=== PATIENT | female | born 1990 | race African-American/Black ===

== ENCOUNTER 2016-09-06 11:58 | Emergency (ER) | payer MEDICAID ==
[2016-09-06 12:03] VITALS: BP 95/83
--- NOTE | 2016-09-06 12:50 | ER Document Report ---
ED GI/ - General Chief Complaint: Abdominal Pain Stated Complaint: STOMACH PAIN Time seen by provider: 12:50 Mode of Arrival: Ambulatory Information source: Patient Notes: 25 yo c/o pelvic cramping since she was seen in [facility] on August 08 for and bleeding (std negative). She does not know if she is Rh- or not she does not remember getting any RhoGAM. She was not seen in this emergency department. They told her she was 9 weeks at the time. She comes into the emergency room today because of persistent pelvic cramping. No vaginal discharge or odor. No fever or chills. No dysuria frequency or urgency. She's in the room eating fried chicken and kazakh fries. Patient wants a note today that there is a heart beat and that everything is okay. She has been told multiple things and wants to be clearly understanding how far along she is. TRAVEL OUTSIDE OF THE [place] IN LAST 30 DAYS: No - Related Data Allergies/Adverse Reactions: diphenhydramine [From Benadryl] Allergy (Verified 09/06/16 12:00) Penicillins Allergy (Verified 09/06/16 12:00) Past Medical History - General Information source: Patient - Social History Smoking Status: Never Smoker Frequency of alcohol use: None Drug Abuse: None Lives with: Spouse/Significant other Family History: Reviewed & Not Pertinent Patient has suicidal ideation: No Patient has homicidal ideation: No - Medical History Medical History: Negative Renal/ Medical History: Denies: Hx Peritoneal Dialysis Surgical Hx: Negative Review of Systems - Review of Systems Constitutional: No symptoms reported EENT: No symptoms reported Cardiovascular: No symptoms reported Respiratory: No symptoms reported Gastrointestinal: No symptoms reported Genitourinary: No symptoms reported Female Genitourinary: See HPI Musculoskeletal: No symptoms reported Skin: No symptoms reported Hematologic/Lymphatic: No symptoms reported Neurological/Psychological: No symptoms reported Physical Exam - Vital signs Vitals: Temp Pulse Resp BP Pulse Ox 98.9 F 79 16 95/83 L 100 09/06/16 12:00 09/06/16 12:00 09/06/16 12:00 09/06/16 12:00 09/06/16 12:00 Interpretation: Normal - General General appearance: Appears well, Alert - HEENT Head: Normocephalic, Atraumatic Eyes: Normal Conjunctiva: Normal Pupils: PERRL Mucous membranes: Normal Neck: Supple. No: Lymphadenopathy - Respiratory Respiratory status: No respiratory distress Chest status: Nontender Breath sounds: Normal Chest palpation: Normal - Cardiovascular Rhythm: Regular Heart sounds: Normal auscultation Murmur: No - Abdominal Inspection: Normal Distension: No distension Bowel sounds: Normal Tenderness: Nontender. No: Tender Organomegaly: Other - fundus that symphysis pubis - Back Back: Normal, Nontender. No: CVA tenderness - Extremities General upper extremity: Normal inspection, Nontender, Normal color, Normal ROM , Normal temperature General lower extremity: Normal inspection, Nontender, Normal color, Normal ROM , Normal temperature, Normal weight bearing. No: Ziare's sign - Neurological Neuro grossly intact: Yes Cognition: Normal Orientation: AAOx4 [place] Coma Scale Eye Opening: Spontaneous [place] Coma Scale Verbal: Oriented [place] Coma Scale Motor: Obeys Commands [place] Coma Scale Total: 15 Speech: Normal Motor strength normal: LUE, RUE, LLE, RLE Sensory: Normal - Psychological Associated symptoms: Normal affect, Normal mood - Skin Skin Temperature: Warm Skin Moisture: Dry Skin Color: Normal Skin irregularity: negative: Rash Course - Re-evaluation Re-evalutation: 09/06/16 13:30 Urinalysis is negative. Consult Dr. Rebollar for the OB ultrasound. 09/06/16 13:37 fht 151 09/06/16 15:39 Viable 12 week 6 day IUP. Blood type is B+. Quantitative is 231,020. No urinary tract infection. Hemoglobin is 10.4 and her normal is 10.7. - Vital Signs Vital signs: Temp Pulse Resp BP Pulse Ox 98.9 F 79 16 95/83 L 100 09/06/16 13:24 09/06/16 13:24 09/06/16 13:24 09/06/16 13:24 09/06/16 13:24 - Laboratory Result Diagrams: 09/06/16 13:05 09/06/16 13:05 Laboratory results interpreted by me: 09/06/16 09/06/16 09/06/16 13:05 13:05 13:05 Hgb 10.4 L Hct 30.5 L MCV 74 L MCH 25.1 L RDW 18.6 H Alkaline Phosphatase 34 L Beta HCG, Quant 301520.00 H Discharge - Discharge Clinical Impression: viable 12 week 6 day , mild pelvic cramping, anemia Condition: Good Disposition: HOME, SELF-CARE Instructions: ([facility]), Pelvic Pain in and Round Ligament Pain ([facility]), [facility] [place], [facility] ([facility]) Additional Instructions: [facility] for your OB care Daily multivitamin Drink 2 L of water per day Return to the emergency room any increased pain or vaginal bleeding Please complete the patient satisfaction survey if you get one, and return it.. If you do not receive a survey, then you can go to the [facility] website, [email or web address] and place your comments about your very good care. Thank you very much. It was a pleasure being your medical provider today. Forms: Return to Work
[2016-09-06 13:24] LABS: ABSOLUTE EOSINOPHILS # (AUTO) 0.1 10^3/uL (0.0-0.6); ABSOLUTE LYMPHOCYTES (AUTO) 1.8 10^3/uL (0.5-4.7); ABSOLUTE MONOCYTES (AUTO) 0.7 10^3/uL (0.1-1.4); ABSOLUTE NEUT (AUTO) 4.2 10^3/uL (1.7-8.2); BASOPHILS % (AUTO) 0.5 % (0-2); EOSINOPHILS % (AUTO) 1.4 % (0-6); HEMATOCRIT 30.5 % (36.0-47.0); HEMOGLOBIN 10.4 g/dL (12.0-15.5); HGB HCT DIFFERENCE 0.7; LYMPHOCYTES % (AUTO) 25.8 % (13-45); MEAN CORPUSCULAR HEMOGLOBIN 25.1 pg (27.0-33.4); MEAN CORPUSCULAR VOLUME 74 fl (80-97); MONOCYTES % (AUTO) 10.6 % (3-13); RED BLOOD COUNT 4.13 10^6/uL (3.72-5.28); RED CELL DISTRIBUTION WIDTH 18.6 % (11.5-14.0); SEGMENTED NEUTROPHILS % (AUTO) 61.7 % (42-78); WHITE BLOOD COUNT 6.9 10^3/uL (4.0-10.5)
[2016-09-06 13:28] LABS: APPEARANCE,URINE SLIGHTLY-CLOUDY; BILIRUBIN,URINE NEGATIVE (NEGATIVE); GLUCOSE, URINE NEGATIVE (NEGATIVE); KETONES,URINE NEGATIVE (NEGATIVE); LEUKOCYTE ESTERASE,URINE NEGATIVE (NEGATIVE); NITRITE,URINE NEGATIVE (NEGATIVE); PROTEIN,URINE NEGATIVE (NEGATIVE); UROBILINOGEN,URINE NEGATIVE mg/dL (<2.0)
[2016-09-06 13:45] LABS: ALANINE AMINOTRANSFERASE 27 U/L (9-52); ALBUMIN 4.5 g/dL (3.5-5.0); ALKALINE PHOSPHATASE 34 U/L (38-126); ANION GAP 10 (5-19); ASPARTATE AMINO TRANSFERASE 25 U/L (14-36); BILIRUBIN,DIRECT 0.2 mg/dL (0.0-0.4); BILIRUBIN,TOTAL 0.6 mg/dL (0.2-1.3); BLOOD UREA NITROGEN 9 mg/dL (7-20); CALCIUM 9.6 mg/dL (8.4-10.2); CARBON DIOXIDE 24 mmol/L (22-30); CHLORIDE 105 mmol/L (98-107); CREATININE RESULT 0.56 mg/dL (0.52-1.25); GLUCOSE 87 mg/dL (75-110); POTASSIUM 4.5 mmol/L (3.6-5.0); SODIUM 139.2 mmol/L (137-145); TOTAL PROTEIN 7.9 g/dL (6.3-8.2)
[2016-09-06 13:56] LABS: ANISOCYTOSIS 2+; HYPOCHROMASIA 1+; MICROCYTOSIS 1+; POIKILOCYTOSIS 4+
[2016-09-06 13:57] LABS: OVALOCYTES 4+; SCHISTOCYTES SLIGHT
[2016-09-11 19:53] LABS: PATH REVIEW PATHOLOGIST REVIEWED
== END 2016-09-06 16:47 | disposition home or self-care (01) ==
LOC: ER 11:58
DX: R10.2 Pelvic and perineal pain (principal); D64.9 Anemia, unspecified; R10.9 Unspecified abdominal pain; Z3A.12 12 weeks gestation of pregnancy
CPT/HCPCS: 36415; 76801; 80053; 81001; 84702; 85025; 86900; 86901; 87086; 99284

== ENCOUNTER 2016-09-12 23:11 | Emergency (ER) | payer MEDICAID ==
--- NOTE | 2016-09-13 01:23 | ER Document Report ---
ED General - General Chief Complaint: OB Problem (<20wks) Stated Complaint: ABDOMINAL PAIN,VAGINAL BLEEDING Notes: Patient is a 25-year-old female at 12 weeks by ultrasound who presents with vaginal bleeding. States presently one or 2 prior to arrival she began to develop vaginal bleeding consistent with a typical menstrual period. She has bled through 1 pad in the past one hour. She notes an associated mild, dull, cramping abdominal pain to the suprapubic region. No history of similar symptoms during this . She has not seen her CORPORATE RECEPTIONIST regarding today's concerns. She denies any vomiting, diarrhea or fever. No vaginal discharge. TRAVEL OUTSIDE OF THE [place] IN LAST 30 DAYS: No - Related Data Allergies/Adverse Reactions: diphenhydramine [From Benadryl] Allergy (Verified 09/12/16 23:29) Penicillins Allergy (Verified 09/12/16 23:29) Past Medical History - General Information source: Patient - Social History Smoking Status: Never Smoker Frequency of alcohol use: None Drug Abuse: None Lives with: Spouse/Significant other Family History: Reviewed & Not Pertinent Renal/ Medical History: Denies: Hx Peritoneal Dialysis Surgical Hx: Negative - Immunizations Hx Diphtheria, Pertussis, Tetanus Vaccination: Yes Review of Systems - Review of Systems Notes: Constitutional: Negative for fever. HENT: Negative for sore throat. Eyes: Negative for visual changes. Cardiovascular: Negative for chest pain. Respiratory: Negative for shortness of breath. Gastrointestinal: Positive for lower abdominal cramping Genitourinary: Positive for vaginal bleeding Musculoskeletal: Negative for back pain. Skin: Negative for rash. Neurological: Negative for headaches, weakness or numbness. 10 point ROS negative except as marked above and in HPI. Physical Exam - Vital signs Vitals: Temp Pulse Resp BP Pulse Ox 98.6 F 84 20 108/61 100 09/12/16 23:32 09/12/16 23:32 09/12/16 23:32 09/12/16 23:32 09/12/16 23:32 Interpretation: Normal Notes: PHYSICAL EXAMINATION: GENERAL: Well-appearing, well-nourished and in no acute distress. HEAD: Atraumatic, normocephalic. EYES: Pupils equal round and reactive to light, extraocular movements intact, sclera anicteric, conjunctiva are normal. ENT: nares patent, oropharynx clear without exudates. Moist mucous membranes. NECK: Normal range of motion, supple without lymphadenopathy LUNGS: Breath sounds clear to auscultation bilaterally and equal. No wheezes rales or rhonchi. HEART: Regular rate and rhythm without murmurs ABDOMEN: Soft, nontender, normoactive bowel sounds. No guarding, no rebound. No masses appreciated. EXTREMITIES: Normal range of motion, no pitting or edema. No cyanosis. NEUROLOGICAL: No focal neurological deficits. Moves all extremities spontaneously and on command. PSYCH: Normal mood, normal affect. SKIN: Warm, Dry, normal turgor, no rashes or lesions noted. Course - Re-evaluation Re-evalutation: 09/13/16 01:21 Patient presents with a mild amount of vaginal bleeding in the setting of an early first trimester . Bedside ultrasound easily able to visualize an intrauterine , heart rate of 145. Active movement. No active bleeding at time of presentation. She is Rh positive. Patient's abdominal exam is otherwise benign without any focal tenderness. I do not suspect an acute appendicitis, pyelonephritis, cystitis, or bowel obstruction. At this time will discharge with return precautions and follow-up recommendations. Verbal discharge instructions given a the bedside and opportunity for questions given. Medication warnings reviewed. Patient is in agreement with this plan and has verbalized understanding of return precautions and the need for primary care follow-up in the next 24-72 hours. - Vital Signs Vital signs: Temp Pulse Resp BP Pulse Ox 97.9 F 78 16 102/56 L 98 09/13/16 01:37 09/13/16 01:37 09/13/16 01:37 09/13/16 01:37 09/13/16 01:37 Discharge - Discharge Clinical Impression: Vaginal bleeding in Qualifiers: Trimester: first trimester Qualified Code(s): O46.91 - Antepartum hemorrhage, unspecified, first trimester Condition: Good Disposition: HOME, SELF-CARE Additional Instructions: Your ultrasound today shows a living intrauterine . You do have a small subchorionic hemorrhage. Many pregnancies with this complication can go on to become normal pregnancies. Please follow closely with your primary care CORPORATE RECEPTIONIST. Please return if you develop severe abdominal pain, bleeding that goes through more than 2 pads for more than 2 hours, pass out, or have any other symptoms that are concerning to you. Please follow-up closely with your OBGYN regarding todays visit.
[2016-09-13 01:41] VITALS: BP 102/56
== END 2016-09-13 01:42 | disposition home or self-care (01) ==
LOC: ER 23:11
DX: O20.9 Hemorrhage in early pregnancy, unspecified (principal); O26.891 Other specified pregnancy related conditions, first trimester; R10.30 Lower abdominal pain, unspecified; Z3A.12 12 weeks gestation of pregnancy; Z88.0 Allergy status to penicillin; Z88.8 Allergy status to other drugs, medicaments and biological substances
CPT/HCPCS: 99283

== ENCOUNTER 2017-03-01 12:20 | Outpatient (CLI) | payer MEDICAID ==
[2017-03-01 13:03] LABS: APPEARANCE,URINE CLEAR; BILIRUBIN,URINE NEGATIVE (NEGATIVE); GLUCOSE, URINE NEGATIVE (NEGATIVE); KETONES,URINE NEGATIVE (NEGATIVE); LEUKOCYTE ESTERASE,URINE NEGATIVE (NEGATIVE); NITRITE,URINE NEGATIVE (NEGATIVE); PROTEIN,URINE NEGATIVE (NEGATIVE); URINE SPECIFIC GRAVITY 1.005; UROBILINOGEN,URINE NEGATIVE mg/dL (<2.0)
[2017-03-01 13:19] LABS: URINE BARBITURATES SCREEN NEGATIVE; URINE METHADONE SCREEN NEGATIVE; URINE OPIATES LOW NEGATIVE; URINE PHENCYCLIDINE SCREEN NEGATIVE
--- NOTE | 2017-03-01 14:46 | Non Stress Test Report ---
Non Stress Test Datetime Report Generated by CPN: 03/01/2017 14:45 DEMOGRAPHIC EGA NST: 38.0 INDICATION Indication for Study (NST) Other: LC MONITORING Monitor Explained: Monitor Explained; Test Explained; Patient Verbalized Understanding Time on Monitor: 03/01/2017 12:44 Time off Monitor: 03/01/2017 14:40 NST Duration: 116 NST INTERVENTIONS NST Interventions: None Physician Notified NST: K Ya CNM BABY A: [id number] BABY A Movement : Present Contraction Frequency : irregular FHR Baseline : 155 Accelerations : 15X15 Decelerations : None Variability : Moderate 6-25bpm NST Review: Meets Criteria for Reactive NST NST Review and Verified By : D Bellavance RNC NST Results: Reactive NST REPORT Report Trigger: Send Report
== END 2017-03-01 14:50 | disposition home or self-care (01) ==
LOC: LC 12:20
PROVIDERS: ATTEND Obstetrics & Gynecology
DX: O47.1 False labor at or after 37 completed weeks of gestation (principal); Z3A.38 38 weeks gestation of pregnancy
CPT/HCPCS: 59025; 80307; 81005

== ENCOUNTER 2017-03-04 14:33 | Outpatient (CLI) | payer MEDICAID ==
[2017-03-04 15:13] LABS: APPEARANCE,URINE SLIGHTLY-CLOUDY; BILIRUBIN,URINE NEGATIVE (NEGATIVE); GLUCOSE, URINE NEGATIVE (NEGATIVE); KETONES,URINE NEGATIVE (NEGATIVE); LEUKOCYTE ESTERASE,URINE MODERATE (NEGATIVE); NITRITE,URINE NEGATIVE (NEGATIVE); PROTEIN,URINE NEGATIVE (NEGATIVE); URINE SPECIFIC GRAVITY 1.013; UROBILINOGEN,URINE NEGATIVE mg/dL (<2.0)
--- NOTE | 2017-03-04 15:23 | Non Stress Test Report ---
Non Stress Test Datetime Report Generated by CPN: 03/04/2017 15:23 DEMOGRAPHIC Test Number: 2 EGA NST: 38.3 INDICATION Indication for Study: Ordered by Provider MONITORING Monitor Explained: Monitor Explained; Test Explained; Patient Verbalized Understanding Time on Monitor: 03/04/2017 14:50 Time off Monitor: 03/04/2017 15:21 NST Duration: 31 NST INTERVENTIONS NST Interventions: None Physician Notified NST: Dr. Enrique BABY A: [id number] BABY A Movement : Present Contraction Frequency : Irreg FHR Baseline : 145 Accelerations : 15X15 Decelerations : None Variability : Moderate 6-25bpm NST Review: Meets Criteria for Reactive NST NST Review and Verified By : SAUL Fleming Results: Reactive NST REPORT Report Trigger: Send Report
[2017-03-04 15:35] LABS: URINE BARBITURATES SCREEN NEGATIVE; URINE METHADONE SCREEN NEGATIVE; URINE OPIATES LOW NEGATIVE; URINE PHENCYCLIDINE SCREEN NEGATIVE
== END 2017-03-04 17:01 | disposition home or self-care (01) ==
LOC: LC 14:33
PROVIDERS: ATTEND Obstetrics & Gynecology
DX: O47.9 False labor, unspecified (principal)
CPT/HCPCS: 59025; 80307; 81005

== ENCOUNTER 2017-03-12 02:36 | Inpatient (IN) | payer MEDICAID ==
[2017-03-12 03:01] LABS: APPEARANCE,URINE CLEAR; BILIRUBIN,URINE NEGATIVE (NEGATIVE); GLUCOSE, URINE NEGATIVE (NEGATIVE); KETONES,URINE NEGATIVE (NEGATIVE); LEUKOCYTE ESTERASE,URINE NEGATIVE (NEGATIVE); NITRITE,URINE NEGATIVE (NEGATIVE); PROTEIN,URINE NEGATIVE (NEGATIVE); URINE SPECIFIC GRAVITY 1.004; UROBILINOGEN,URINE NEGATIVE mg/dL (<2.0)
[2017-03-12] MEDS ORDERED: RINGERS SOLUTION,LACTATED 1,000 ML IV PRN (03:03)
[2017-03-12] MEDS ORDERED: MISOPROSTOL 0.2 MG TABLET ONE (03:06)
[2017-03-12] MEDS ORDERED: VANCOMYCIN HCL INJ 1000 MG VIAL ONE (03:06)
[2017-03-12] MEDS ORDERED: OXYTOCIN/NORMAL SALINE 20 UNIT/1,000 ML RTUINJ ONE (03:06)
[2017-03-12] MEDS ORDERED: LIDOCAINE 1% INJ-PF (10 MG/ML) 30 ML SDV ONE (03:06)
[2017-03-12] MEDS ORDERED: VANCOMYCIN HCL 1,000 MG in DEXTROSE 5%-WATER 250 ML IV SCH (03:15)
[2017-03-12 03:18] LABS: URINE BARBITURATES SCREEN NEGATIVE; URINE METHADONE SCREEN NEGATIVE; URINE OPIATES LOW NEGATIVE; URINE PHENCYCLIDINE SCREEN NEGATIVE
[2017-03-12 03:49] LABS: ABSOLUTE EOSINOPHILS # (AUTO) 0.1 10^3/uL (0.0-0.6); ABSOLUTE LYMPHOCYTES (AUTO) 3.6 10^3/uL (0.5-4.7); ABSOLUTE MONOCYTES (AUTO) 1.5 10^3/uL (0.1-1.4); ABSOLUTE NEUT (AUTO) 6.7 10^3/uL (1.7-8.2); BASOPHILS % (AUTO) 0.2 % (0-2); EOSINOPHILS % (AUTO) 0.9 % (0-6); HEMATOCRIT 27.3 % (36.0-47.0); HEMOGLOBIN 8.9 g/dL (12.0-15.5); HGB HCT DIFFERENCE -0.6; LYMPHOCYTES % (AUTO) 30.3 % (13-45); MEAN CORPUSCULAR HEMOGLOBIN 24.5 pg (27.0-33.4); MEAN CORPUSCULAR HGB CONC 32.7 g/dL (32.0-36.0); MEAN CORPUSCULAR VOLUME 75 fl (80-97); MONOCYTES % (AUTO) 12.5 % (3-13); RED BLOOD COUNT 3.66 10^6/uL (3.72-5.28); RED CELL DISTRIBUTION WIDTH 18.2 % (11.5-14.0); SEGMENTED NEUTROPHILS % (AUTO) 56.1 % (42-78)
[2017-03-12] MEDS ORDERED: CETIRIZINE 10 MG TABLET PO ONE (04:34)
[2017-03-12] MEDS ORDERED: CETIRIZINE HCL ORAL SOLN 5 MG/5 ML UDCUP ONE (04:45)
[2017-03-12] MEDS ORDERED: OXYTOCIN/NORMAL SALINE 20 UNIT/1,000 ML RTUINJ IV PRN ×2 (05:43→11:34)
--- NOTE | 2017-03-12 09:53 | L&D Progress Notes ---
PROGRESS NOTES Datetime Report Generated by CPN: 03/12/2017 09:53 PROGRESS NOTE Impression: Reassuring Heart Rate Plan: Continue Present Management; Induction Vital Signs : Reviewed; Within Normal Limits Comment: sleeping through uc's, Cat 1 strip VAGINAL EXAM Dilatation: 6 Effacement: 90 Station: -2 MEMBRANES Pooling: Negative Membranes: Intact FETUS A Monitoring: External US : 39.4 Estimated Weight (gm): 3500 Presentation: Vertex SIGNATURE SIGNATURE: [id number] SIGNATURE: [id number] SIGNATURE: [id number] Assignment: Hari Short MD Signature: with User ID: [email or web address] : with User ID: [email or web address]
[2017-03-12] MEDS ORDERED: IBUPROFEN 800 MG TABLET ONE (11:33)
[2017-03-12] MEDS ORDERED: DIPHENHYDRAMINE HCL 25 MG CAPSULE PO PRN (11:34)
[2017-03-12] MEDS ORDERED: MISOPROSTOL 0.2 MG TABLET PR PRN (11:34)
[2017-03-12] MEDS ORDERED: PROMETHAZINE HCL 25 MG SUPP.RECT PR PRN (11:34)
[2017-03-12] MEDS ORDERED: ACETAMINOPHEN WITH CODEINE #3 TABLET PO PRN (11:34)
[2017-03-12] MEDS ORDERED: MAGNESIUM HYDROXIDE SUSP 30 ML UDCUP PO PRN ×2 (11:34→15:00)
[2017-03-12] MEDS ORDERED: MEASLES,MUMPS&RUBELLA VACC/PF 0.5 ML VIAL SUBCUT PRN ×2 (11:34→15:00)
[2017-03-12] MEDS ORDERED: DIPH/PERTUSS(ACELL)/TETANUS VAC/PF 0.5 ML SYR (>=10YO) IM PRN ×2 (11:34→15:00)
[2017-03-12] MEDS ORDERED: ACETAMINOPHEN 650 MG SUPP.RECT PR PRN (11:34)
[2017-03-12] MEDS ORDERED: PSEUDOEPHEDRINE HCL 30 MG TABLET PO PRN (11:34)
[2017-03-12] MEDS ORDERED: BENZOCAINE/MENTHOL AEROSOL SPRAY 56 ML TOP PRN (11:34)
[2017-03-12] MEDS ORDERED: DIBUCAINE 1% OINTMENT 28 GM TP PRN (11:34)
[2017-03-12] MEDS ORDERED: PROMETHAZINE HCL INJ 25 MG/1 ML VIAL IV PRN ×2 (11:34→15:00)
[2017-03-12] MEDS ORDERED: GLYCERIN/WITCH HAZEL LEAF 1 EACH MED..PAD TP PRN (11:34)
[2017-03-12] MEDS ORDERED: NA PHOS,M-B/NA PHOS,DI-BA (ADULT) 133 ML ENEMA PR PRN (11:34)
[2017-03-12] MEDS ORDERED: PROMETHAZINE HCL 25 MG TABLET PO PRN (11:34)
--- NOTE | 2017-03-12 12:14 | Delivery Summary ---
Del Sum A-C Datetime Report Generated by CPN: 03/12/2017 12:14 DELIVERY PERSONNEL DELIVERY PERSONNEL: [id number] Delivery Doctor:: Kim Galindo CNM Labor and Delivery Nurse:: Rosio Gibson RNservice now developer Nurse:: Gretchen Palacio RN Logistics Team Leader/PAYROLL BOOKKEEPER: Vishnu Walter, SIGN MAKER MATERNAL INFORMATION Delivery Anesthesia: None Medications After Delivery: Pitocin Bolus-Please Comment; Pitocin Drip 20 Units/1000ml NSS; Cytotec 600mcg Per Rectum/Vagina Estimated Blood Loss (ml): 200 Maternal Complications: None Provider Comments: pt progressed quickly, viable female from OA to PETAR with compound hand presentation, placed on mothers abd, cord double clamped and cut after 2 min, cord cut by FOB, spont delivery of grossly nl intact placenta, 3 vc, ebl 200cc, Pitocin, massage and cytotec 600 mcg via rectum superficial periurethral lac did not need repair Baby and mom remains in recovery in stable condition LABOR SUMMARY EDC: 03/15/2017 00:00 No. Babies in Womb: 1 Attempted: No Labor Anesthesia: None LABOR INFORMATION Reason for Induction: Not Applicable Onset of Labor: 03/12/2017 05:30 Complete Dilatation: 03/12/2017 11:14 Oxytocin: Augmentation Group B Beta Strep: positive Antibiotics # of Doses: 1 Antibiotics Time of Last Dose: 329 Name of Antibiotic Given: Vancomycin Steroids Given: None Reason Steroids Not Administered: Not Applicable MEMBRANES Membranes Rupture Method: Artificial Rupture of Membranes: 03/12/2017 10:57 Length of Rupture (hr): 0.38 Amniotic Fluid Color: Clear Amniotic Fluid Amount: Small Amniotic Fluid Odor: Normal STAGES OF LABOR Stage 1 hr: 5 Stage 1 min: 44 Stage 2 hr: 0 Stage 2 min: 6 Stage 3 hr: 0 Stage 3 min: 4 Total Time in Labor hr: 5 Total Time in Labor min: 54 VAGINAL DELIVERY Episiotomy: None Laceration #1: None Laceration Extension #1: N/A Other Laceration: PERIURETHRAL SUPERFICIAL LAC Laceration Repair: No Sponge Count Correct: N/A Sharps Count Correct: N/A CSECTION DELIVERY Primary Indication: N/A Secondary Indication: N/A CSection Incidence: N/A Labor: N/A Elective: N/A CSection Incision: N/A BABY A INFORMATION Delivery Date/Time: 03/12/2017 11:20 Method of Delivery: Vaginal Born in Route : No : N/A Forceps: N/A Vacuum Extraction: N/A Shoulder Dystocia : No PRESENTATION/POSITION BABY A Presentation: Cephalic Cephalic Presentation: Vertex Vertex Position: Left Occipital Anterior Breech Presentation: N/A PLACENTA INFORMATION BABY A Placenta Delivery Time : 03/12/2017 11:24 Placenta Method of Delivery: Spontaneous Placenta Status: Delivered SCORES BABY A Heart Rate 1 min: >100 bpm Resp Effort 1 min: Good Cry Reflex Irritability 1 min: Cough or Sneeze or Pulls Away Muscle Tone 1 min: Active Motion Color 1 min: Blue/Pale Resuscitation Effort 1 min: Tactile Stimulation SCORE 1 MIN: 8 Heart Rate 5 min: >100 bpm Resp Effort 5 min: Good Cry Reflex Irritability 5 min: Cough or Sneeze or Pulls Away Muscle Tone 5 min: Active Motion Color 5 min: Body [place], Extremities Blue Resuscitation Effort 5 min: Tactile Stimulation SCORE 5 MIN: 9 INFORMATION BABY A Gestational Age at Delivery: 39.4 Gestational Status: Full Term- 39- 40.6 Weeks Infant Outcome : Liveborn Infant Condition : Stable Sex: Female IDENTIFICATION BABY A Verification Date/Time: 03/12/2017 11:46 ID Band Number: [id number] Mother's Name Verified: Yes Infant RN Verifying : AZaira Gibson RN C. Tania RN WEIGHT/LENGTH BABY A Infant Birthweight (gm): 2790 Weight (lb): 6 Infant Weight (oz): 2 Infant Length (in): 19.25 Length (cm): 48.90 CORD INFORMATION BABY A No. Cord Vessels: 3 Nuchal Cord : N/A Cord Blood Taken: Yes-For Storage (Mom's Blood type +) Infant Suction: Mouth ASSESSMENT BABY A Complications: None Physical Findings at Delivery: Within Normal Limits Infant Respirations: Appears Normal Skin to Skin: Yes Poiser/ALS Called : No Infant Care By: A MAKENZIE, RN Transferred To: Remains with Mother BABY B INFORMATION : N/A
--- NOTE | 2017-03-12 14:19 | Admission Physical ---
Datetime Report Generated by CPN: 03/12/2017 14:19 CURRENT ADMISSION Chief Complaint: Uterine Contractions Indication for Induction: Not Applicable Indication for Induction: Term, Intrauterine ; Active Labor Admit Plan: Admit to Unit; Initiate Labor Protocol ALLERGIES Medication Allergies: Yes Medication Allergies: Penicillins/SV/Facial swelling (03/04/2017); diphenhydramine/MO/Generalized kamala (03/04/2017) Medication Allergies: Penicillins (03/01/2017); diphenhydramine (03/01/2017) Medication Allergies: Penicillins (09/12/2016); diphenhydramine (09/12/2016) Latex: No Latex Allergies OBSTETRICAL HISTORY EDC: 03/15/2017 00:00 : 2 Para: 1 Term: 1 : 0 SAB: 0 IAB: 0 Ectopic: 0 Livin Cesareans: 0 VBACs: 0 Multiple Births: 0 Gestational Diabetes: No Rh Sensitization: No Incompetent Cervix: No REBEKAH: No Infertility: No ART Treatment: No Uterine Anomaly: No IUGR: No Hx Previous C/S: No Macrosomia: No Hx Loss/Stillborn: No PIH: No Hx : No Placenta Previa/Abruption: No Depression/PP Depression: No PTL/PROM: No Post Hemorrhage: No Current Procedures: Ultrasound; NST Obstetrical History Comments: G1- 2008 anemia G2- current anemia SEE RECORDS Alcohol: No Marijuana : No Cocaine: No Other Illicit Drugs: No Cigarettes: Never Smoker. [id number] MEDICAL HISTORY Diabetes: No Blood Transfusion: No Pulmonary Disease (Asthma, TB): No Breast Disease: No Hypertension: No Exterior Work Helper Surgery: No Heart Disease: No Hosp/Surgery: Yes Autoimmune Disorder: No Anesthetic Complications: No Kidney Disease: No Abnormal Pap Smear: No Neuro/Epilepsy: No Psychiatric Disorders: No Other Medical Diseases: Yes Hepatitis/Liver Disease: No Significant Family History: No Varicosities/Phlebitis: No Trauma/Violence : No Thyroid Dysfunction: No Medical History Comments: Thalassemia minor (hx iron infusion prior to first ), contreras parkinson white, stomach ulcers INFECTIOUS HISTORY Gonorrhea: No Genital Herpes: No Chlamydia: No Tuberculosis: No Syphilis: No Hepatitis: No HIV/AIDS Exposure: No Rash or Viral Illness: No HPV: No PHYSICAL EXAM General: Normal HEENT: Normal Neurologic: Normal Thyroid: Normal Heart: Normal Lungs: Normal Breast: Normal Back: Normal Abdomen: Normal Genitourinary Exam: Normal Extremities: Normal DTRs: Normal Pelvic Type: Adequate Vital Signs: Reviewed VAGINAL EXAM Dilatation: 6 Effacement: 90 Station: -2 MEMBRANES Pooling: Negative Membranes: Intact FETUS A EGA: 39.4 Monitoring: External US FHR- Baseline: 150 Variability: Moderate 6-25bpm Accelerations: 15X15 Decelerations: None FHR Category: Category I Estimated Weight (gm): 3500 Presentation: Vertex PLANS FOR LABOR AND DELIVERY Labor and Delivery: None Other Pain Management Plans: Unsure of pain management plan. Considering epidural. Feeding Preference: Both Benefit of Breast Feed Discussed: Yes Circumcision: N/A INFORMED CONSENT Signature: with User ID: [email or web address]
[2017-03-12] MEDS: ACETAMINOPHEN WITH CODEINE #3 TABLET PO PRN (15:04)
[2017-03-12] MEDS: IBUPROFEN 800 MG TABLET PO SCH ×2 (15:04→21:10)
[2017-03-12] MEDS: FERROUS SULFATE 325 MG TABLET PO SCH (17:28)
[2017-03-12] MEDS: DOCUSATE SODIUM 100 MG CAPSULE PO SCH (17:29)
[2017-03-12] MEDS: FAMOTIDINE 20 MG TABLET PO SCH (21:10)
[2017-03-13] MEDS: IBUPROFEN 800 MG TABLET PO SCH ×3 (05:25→21:14)
[2017-03-13 07:04] LABS: HEMATOCRIT 22.5 % (36.0-47.0); HGB HCT DIFFERENCE 0.6; MEAN CORPUSCULAR HEMOGLOBIN 25.4 pg (27.0-33.4); MEAN CORPUSCULAR HGB CONC 34.2 g/dL (32.0-36.0); MEAN CORPUSCULAR VOLUME 74 fl (80-97); RED BLOOD COUNT 3.04 10^6/uL (3.72-5.28); RED CELL DISTRIBUTION WIDTH 18.4 % (11.5-14.0)
[2017-03-13 07:13] LABS: HEMOGLOBIN 7.7 g/dL (12.0-15.5)
[2017-03-13 07:35] LABS: WHITE BLOOD COUNT 13.7 10^3/uL (4.0-10.5)
[2017-03-13] MEDS: FAMOTIDINE 20 MG TABLET PO SCH ×2 (10:55→21:14)
[2017-03-13] MEDS: SENNOSIDES/DOCUSATE 8.6-50 MG 1 EACH TABLET PO SCH (10:55)
[2017-03-13] MEDS: DOCUSATE SODIUM 100 MG CAPSULE PO SCH ×2 (10:55→17:38)
[2017-03-13] MEDS: PRENATAL VITAMIN W-O CA NO5/FE FUMARATE/FA CAPSULE PO SCH (10:55)
[2017-03-13] MEDS: FERROUS SULFATE 325 MG TABLET PO SCH ×2 (10:56→17:39)
--- NOTE | 2017-03-13 11:22 | PDOC PROGRESS REPORT ---
Subjective-OB Subjective: Post Delivery Day: 26 year old. Denies any needs at this time pt sitting up offers no complaints despite anemia hgb 7.7 without difficulty helplock in place iron bid ff@u-1 mild lochia minimal clots anticipate d/c in AM. Physical Exam (OB) Vital Signs: Temp Pulse Resp BP Pulse Ox 98.4 F 89 14 110/65 99 03/13/17 07:30 03/13/17 07:30 03/13/17 07:30 03/13/17 07:30 03/13/17 07:30 Intake & Output 03/12/17 03/13/17 03/14/17 06:59 06:59 06:59 Weight 75.4 kg - PIH/Pre-Eclampsia DTR's: 2 + Clonus: Negative Headache: Absent Epigastric Pain: No Visual Changes: No - Lochia Lochia Amount: Moderate 25-50 ml Lochia Color: Rubra/Red - Abdomen Description: Soft, Round Hernia Present: No Fundal Description: Firm, Midline Fundal Height: u/u - u/2 Objective-Diagnostic Laboratory: 03/13/17 06:39 03/13/17 06:39 WBC 13.7 H RBC 3.04 L Hgb 7.7 L Hct 22.5 L MCV 74 L MCH 25.4 L MCHC 34.2 RDW 18.4 H Plt Count 227
[2017-03-13] MEDS: ACETAMINOPHEN WITH CODEINE #3 TABLET PO PRN (19:50)
[2017-03-14] MEDS: IBUPROFEN 800 MG TABLET PO SCH (06:01)
--- NOTE | 2017-03-14 09:04 | PDOC DISCHARGE SUMMARY ---
Final Diagnosis Discharge Date: 03/14/17 - Final Diagnosis (1) Anemia affecting Is this a current diagnosis for this admission?: Yes (2) Vaginal delivery Is this a current diagnosis for this admission?: Yes Discharge Data - Discharge Medication Home Medications: Pnv,Calcium 72/Iron/Folic Acid [Pnv Plus Multivit Tab] 1 tab PO DAILY 03/01/17 Procedures: None Intrapartum Procedure(s): Spontaneous Vaginal Delivery - Diagnosis Test Laboratory: Temp Pulse Resp BP Pulse Ox 97.9 F 89 15 109/63 100 03/14/17 07:25 03/14/17 07:25 03/14/17 07:25 03/14/17 07:25 03/14/17 07:25 03/12/17 03/12/17 03/13/17 02:45 03:29 06:39 RBC 3.66 L 3.04 L Hgb 8.9 L 7.7 L Hct 27.3 L 22.5 L Urine Opiates Screen NEGATIVE - Discharge information/Instructions Discharge Activity: Activity As Tolerated Discharge Diet: Regular - iron bid pt to follow up with hematology Disposition: HOME, SELF-CARE Follow up with: [facility] in: 4
[2017-03-14 10:14] VITALS: BP 110/65
[2017-03-14] MEDS: SENNOSIDES/DOCUSATE 8.6-50 MG 1 EACH TABLET PO SCH (11:11)
[2017-03-14] MEDS: FAMOTIDINE 20 MG TABLET PO SCH (11:11)
[2017-03-14] MEDS: FERROUS SULFATE 325 MG TABLET PO SCH (11:11)
[2017-03-14] MEDS: PRENATAL VITAMIN W-O CA NO5/FE FUMARATE/FA CAPSULE PO SCH (11:11)
[2017-03-14] MEDS: DOCUSATE SODIUM 100 MG CAPSULE PO SCH (11:11)
== END 2017-03-14 12:25 | disposition home or self-care (01) | DRG 775 ==
LOC: LC 02:36 → LR 03:05 → 2S 14:00
PROVIDERS: ADMIT Obstetrics & Gynecology; ATTEND Obstetrics & Gynecology
PROC: 10E0XZZ Delivery of Products of Conception, External Approach (ICD-10-PCS; principal; 2017-03-12)
PROC: 4A1HXCZ Monitoring of Products of Conception, Cardiac Rate, External Approach (ICD-10-PCS; 2017-03-12)
DX: O32.6XX0 Maternal care for compound presentation, not applicable or unspecified (principal); O71.82 Other specified trauma to perineum and vulva; O99.824 Streptococcus B carrier state complicating childbirth; D64.9 Anemia, unspecified; O99.02 Anemia complicating childbirth; Z37.0 Single live birth; Z3A.39 39 weeks gestation of pregnancy; Z88.0 Allergy status to penicillin
CPT/HCPCS: 36415; 80307; 81005; 85025; 85027; 86592; 86850; 86900; 86901; J2590; J3370; J3490

== ENCOUNTER 2017-08-14 21:43 | Emergency (ER) | payer MEDICAID ==
[2017-08-14 21:50] VITALS: BP 115/74
[2017-08-14] MEDS ORDERED: DEXAMETHASONE SOD PHOS INJ 10 MG/1 ML VIAL IM ONE (22:46)
[2017-08-14] MEDS ORDERED: IBUPROFEN 600 MG TABLET PO ONE (22:46)
--- NOTE | 2017-08-14 22:48 | ER Document Report ---
ED ENT - General Chief Complaint: Sore Throat Stated Complaint: SORE THROAT Time Seen by Provider: 08/14/17 22:22 Mode of Arrival: Ambulatory Information source: Patient TRAVEL OUTSIDE OF THE [place] IN LAST 30 DAYS: No - HPI Patient complains to provider of: Throat problem Notes: Patient is here with complaints of throat pain for the last 2 days. No fever. No difficulty breathing or swelling. Increased pain with swallowing. No nausea , vomiting, diarrhea. She has had a very minimal cough. No chest pain or shortness of breath. No abdominal pain. No rash. No headache or neck stiffness. No other complaints. - Related Data Allergies/Adverse Reactions: Penicillins Allergy (Severe, Verified 03/04/17 14:47) Facial swelling diphenhydramine [From Benadryl] Allergy (Intermediate, Verified 03/04/17 14:47) Generalized rash Past Medical History - Social History Smoking Status: Unknown if Ever Smoked Family History: Reviewed & Not Pertinent Renal/ Medical History: Denies: Hx Peritoneal Dialysis - Immunizations Hx Diphtheria, Pertussis, Tetanus Vaccination: Yes Review of Systems - Review of Systems -: Yes All other systems reviewed and negative Physical Exam - Vital signs Vitals: Temp Pulse Resp BP Pulse Ox 97.8 F 71 20 115/74 95 08/14/17 21:49 08/14/17 21:49 08/14/17 21:49 08/14/17 21:49 08/14/17 21:49 - Notes Notes: GENERAL: alert, cooperative, nontoxic, no distress. HEAD: normocephalic, atraumatic EYES: conjunctiva pink without discharge, no external redness or swelling. EARS: no external swelling, no external redness, no mastoid redness, swelling, tenderness. Ear canals are clear without swelling or drainage. TMs pearly silva , no redness, no bulging, normal landmarks, no perforation. NOSE: atraumatic, no external swelling. clear rhinorrhea noted. MOUTH/THROAT: mucous membranes moist and pink, posterior pharynx without erythema, swelling, exudate. No trismus or drooling. Swelling to the uvula. No significant erythema. Uvula is midline. No peritonsillar abscess. NECK: soft, supple, full range of motion, no meningismus. CHEST: no distress, lungs clear and equal throughout. No wheezing, rales, rhonchi. CARDIAC: regular rate and rhythm, no murmur, normal capillary refill, normal pulses. No peripheral edema noted. BACK: full range of motion, no CVA tenderness. EXTREMITIES: full range of motion of all extremities. No redness, no swelling. NEURO: alert and oriented A&O3, no focal deficits, full range of motion of all extremities. PYSCH: appropriate mood, affect. Patient is cooperative. SKIN: pink, warm, dry, no rash. Course - Re-evaluation Re-evalutation: 08/14/17 23:50 Patient is nontoxic appearing with stable vitals. Here with complaints of sore throat. On exam she is noted to have a swollen uvula consistent with uvulitis. No significant redness. No sign of peritonsillar abscess. No trismus or drooling. No stridor. Voice is normal. She is in no distress. Rapid strep is negative. She was given a dose of Decadron here in the emergency department. I will discharge her home with a prescription for Voltaren. Follow -up if not better in the next 3-5 days, sooner for worsening symptoms, high fever, difficulty breathing or swallowing, or for any further concerns. The patient's emergency department workup and current diagnosis were explained to the patient and or family. Follow-up instructions were provided. Medications if prescribed were discussed. Instructions for when to return to the emergency department including specific worrisome symptoms were discussed with the patient and/or family. - Vital Signs Vital signs: Temp Pulse Resp BP Pulse Ox 97.8 F 71 20 115/74 95 08/14/17 21:49 08/14/17 21:49 08/14/17 21:49 08/14/17 21:49 08/14/17 21:49 Discharge - Discharge Clinical Impression: Uvulitis Condition: Stable Disposition: HOME, SELF-CARE Instructions: Uvula Swelling ([facility]) Additional Instructions: Take medications as prescribed. Drink plenty of fluids. Follow-up if not better in 3-5 days, sooner for worsening pain, high fever, difficulty breathing or swallowing, or for any further concerns. Prescriptions: Diclofenac Sodium [Voltaren 50 Mg Tablet.] 50 mg PO BID #20 tablet. Forms: Smoking Cessation Education Referrals: [facility] [Provider Group] - Follow up as needed
== END 2017-08-14 23:57 | disposition home or self-care (01) ==
LOC: ER 21:43
DX: K12.2 Cellulitis and abscess of mouth (principal); R05 Cough; Z88.0 Allergy status to penicillin
CPT/HCPCS: 99283; 96372; 87070; 87880; J3490; J1100

== ENCOUNTER 2019-07-23 19:30 | Emergency (ER) | payer MEDICAID ==
[2019-07-23 20:53] VITALS: BP 124/75
[2019-07-24 00:41] LABS: ABSOLUTE EOSINOPHILS # (AUTO) 0.1 10^3/uL (0.0-0.6); ABSOLUTE LYMPHOCYTES (AUTO) 3.4 10^3/uL (0.5-4.7); ABSOLUTE MONOCYTES (AUTO) 0.6 10^3/uL (0.1-1.4); ABSOLUTE NEUT (AUTO) 3.3 10^3/uL (1.7-8.2); BASOPHILS % (AUTO) 0.5 % (0-2); EOSINOPHILS % (AUTO) 1.8 % (0-6); HEMATOCRIT 33.3 % (36.0-47.0); LYMPHOCYTES % (AUTO) 45.6 % (13-45); MEAN CORPUSCULAR VOLUME 73 fl (80-97); MONOCYTES % (AUTO) 8.4 % (3-13); RED BLOOD COUNT 4.59 10^6/uL (3.72-5.28); RED CELL DISTRIBUTION WIDTH 17.2 % (11.5-14.0); SEGMENTED NEUTROPHILS % (AUTO) 43.7 % (42-78); TOTAL CELLS COUNTED % (AUTO) 100 %; WHITE BLOOD COUNT 7.5 10^3/uL (4.0-10.5)
[2019-07-24 00:43] LABS: ALBUMIN 4.5 g/dL (3.5-5.0); ALKALINE PHOSPHATASE 58 U/L (38-126); ANION GAP 10 (5-19); APPEARANCE,URINE CLEAR; ASPARTATE AMINO TRANSFERASE 26 U/L (14-36); BILIRUBIN,DIRECT 0.2 mg/dL (0.0-0.4); BILIRUBIN,TOTAL 0.6 mg/dL (0.2-1.3); BILIRUBIN,URINE NEGATIVE (NEGATIVE); BLOOD UREA NITROGEN 9 mg/dL (7-20); CALCIUM 9.4 mg/dL (8.4-10.2); CARBON DIOXIDE 28 mmol/L (22-30); CHLORIDE 101 mmol/L (98-107); COLOR,URINE YELLOW; GLUCOSE 78 mg/dL (75-110); GLUCOSE, URINE NEGATIVE (NEGATIVE); KETONES,URINE 20 mg/dL (NEGATIVE); LEUKOCYTE ESTERASE,URINE NEGATIVE (NEGATIVE); NITRITE,URINE NEGATIVE (NEGATIVE); POTASSIUM 4.2 mmol/L (3.6-5.0); PROTEIN,URINE NEGATIVE (NEGATIVE); TOTAL PROTEIN 8.2 g/dL (6.3-8.2); URINE SPECIFIC GRAVITY 1.017; UROBILINOGEN,URINE NEGATIVE mg/dL (<2.0)
[2019-07-24 00:52] LABS: PLATELET COUNT 378 10^3/uL (150-450)
== END 2019-07-24 01:38 | disposition left against medical advice (07) ==
LOC: ER 19:30
DX: Z53.21 Procedure and treatment not carried out due to patient leaving prior to being seen by health care provider (principal); R10.30 Lower abdominal pain, unspecified
CPT/HCPCS: 36415; 80053; 81001; 81025; 83690; 85025